=== PATIENT | female | born 1950 | race Caucasian/White ===

== ENCOUNTER 2016-07-28 07:50 | Day surgery (SDC) | payer BC, MEDICARE ==
[~2016-07-28] VITALS: Ht 162.6 cm; Wt 123.0 kg
[~2016-07-28 07:50] MED LIST: ACETAMINOPHEN 500 MG TAB (TYLENOL) PO PRN; BSS OPHTHALMIC IRRIGATION SOLUTION 15 ML BTL ONE; CHONDROITIN/HYALURONATE (DISCOVISC) 1 ML SYR IO ONE; EPINEPHrine 1MG/ML (1:1000) 1 ML AMPUL (ADRENALIN) ONE; LIDOCAINE PF 1% (XYLOCAINE) 30 ML VIAL INJ ONE; PHENYLEPHRINE/KETOROLAC 4 ML VIAL IO ONE; POVIDONE-IODINE 5% OPHTHALMIC SOLUTION (BETADINE PREP) 30 ML BTL ONE; SCOPOLAMINE 1.5 MG (TRANSDERM-SCOP) PATCH TD ONE; SODIUM CHLORIDE FLUSH 3 ML SYR IV PRN; TETRACAINE 0.5% OPHTHALMIC SOLUTION 2 ML BTL ONE; VANCOMYCIN 500 MG VIAL ONE; diphenhydrAMINE 50 MG/ML INJ (BENADRYL) IV PRN
[2016-07-28 07:56] VITALS: BP 153/75
[2016-07-28] MEDS: LIDOCAINE 3.5% OPHTH GEL (AKTEN) 1 ML BTL OS SCH ×4 (08:05→08:35)
[2016-07-28] MEDS: HOME MEDICATION OS SCH ×3 (08:16→08:36)
[2016-07-28] MEDS: CATARACT PRE-OP EYE DROPS 0.5ML SYRINGE OS SCH ×3 (08:16→08:36)
[2016-07-28] MEDS ORDERED: MIDAZOLAM 2 MG/2 ML (VERSED) VIAL ONE (09:02)
[2016-07-28] MEDS ORDERED: CHONDROITIN/HYALURONATE (VISCOAT) 0.5 ML SYR IO ONE (09:16)
[2016-07-28] MEDS ORDERED: ACETYLCHOLINE CHLORIDE 20 MG/2 ML KIT IO ONE (09:36)
[2016-07-28 10:04] VITALS: BP 154/79
== END 2016-07-28 10:27 | disposition home or self-care (01) ==
LOC: ASC 07:50
PROVIDERS: ATTEND Ophthalmology
PROC: 08RK3JZ Replacement of Left Lens with Synthetic Substitute, Percutaneous Approach (ICD-10-PCS; principal; 2016-07-28)
DX: H26.9 Unspecified cataract (principal); H53.8 Other visual disturbances; E11.9 Type 2 diabetes mellitus without complications; Z79.4 Long term (current) use of insulin; I10 Essential (primary) hypertension
CPT/HCPCS: 36415; 66984; 84132; C9447; J0171; J2001; J2250; J3370; V2632

== ENCOUNTER 2016-08-04 07:09 | Day surgery (SDC) | payer BC ==
[~2016-08-04] VITALS: Ht 162.6 cm; Wt 124.0 kg
[~2016-08-04 07:09] MED LIST changes: -CHONDROITIN/HYALURONATE (DISCOVISC) 1 ML SYR IO ONE; -PHENYLEPHRINE/KETOROLAC 4 ML VIAL IO ONE; -SCOPOLAMINE 1.5 MG (TRANSDERM-SCOP) PATCH TD ONE; -TETRACAINE 0.5% OPHTHALMIC SOLUTION 2 ML BTL ONE
[2016-08-04] MEDS ORDERED: PHENYLEPHRINE/KETOROLAC 4 ML VIAL IO ONE (07:10)
[2016-08-04] MEDS ORDERED: CHONDROITIN/HYALURONATE (DISCOVISC) 1 ML SYR IO ONE (07:10)
[2016-08-04] MEDS ORDERED: TETRACAINE 0.5% OPHTHALMIC SOLUTION 4 ML BTL ONE (07:10)
[2016-08-04 07:22] VITALS: BP 146/80
[2016-08-04] MEDS: LIDOCAINE 3.5% OPHTH GEL (AKTEN) 1 ML BTL OD SCH ×4 (07:40→08:10)
[2016-08-04] MEDS: CATARACT PRE-OP EYE DROPS 0.5ML SYRINGE OD SCH ×3 (07:50→08:10)
[2016-08-04] MEDS: HOME MEDICATION OD SCH ×3 (07:50→08:10)
[2016-08-04] MEDS ORDERED: SCOPOLAMINE 1.5 MG (TRANSDERM-SCOP) PATCH TD ONE (07:59)
[2016-08-04] MEDS ORDERED: ONDANSETRON 2 MG/ML (Z0FRAN) 2 ML VIAL ONE (07:59)
[2016-08-04] MEDS ORDERED: NALBUPHINE 10 MG/ML (NUBAIN) 1 ML AMP ONE (08:43)
[2016-08-04] MEDS ORDERED: MIDAZOLAM 2 MG/2 ML (VERSED) VIAL ONE (08:43)
[2016-08-04] MEDS ORDERED: CHONDROITIN/HYALURONATE (VISCOAT) 0.5 ML SYR IO ONE (08:57)
[2016-08-04] MEDS ORDERED: ACETYLCHOLINE CHLORIDE 20 MG/2 ML KIT IO ONE (09:00)
[2016-08-04 09:34] VITALS: BP 144/60
== END 2016-08-04 09:59 | disposition home or self-care (01) ==
LOC: ASC 07:09
PROVIDERS: ATTEND Ophthalmology
DX: H25.11 Age-related nuclear cataract, right eye (principal); E11.9 Type 2 diabetes mellitus without complications; I10 Essential (primary) hypertension; Z79.4 Long term (current) use of insulin
CPT/HCPCS: 66984; J0171; J2001; J2250; J2300; J3370; V2632